=== PATIENT | female | born 1995 | race Caucasian/White ===

== ENCOUNTER 2022-07-20 14:25 | Outpatient (CLI) | payer BC, SELFPAY ==
[2022-07-23 11:34] LABS: Testosterone, Adult Male 517 ng/dL
== END 2022-07-20 14:26 | disposition home or self-care (01) ==
LOC: NFLDREF 14:26
PROVIDERS: Visit Provider Obstetrics & Gynecology
DX: F64.9 Gender identity disorder, unspecified (principal)
CPT/HCPCS: 84403

== ENCOUNTER 2022-07-27 13:34 | Outpatient (CLI) | payer BC, SELFPAY | END 2022-07-27 13:35 | disposition home or self-care (01) | LOC: NFLDREF 13:36 | PROVIDERS: Visit Provider Obstetrics & Gynecology | DX: R53.83 Other fatigue (principal); Z79.899 Other long term (current) drug therapy | CPT/HCPCS: 84443 ==

== ENCOUNTER 2022-10-02 11:07 | Outpatient (CLI) | payer BC, SELFPAY ==
[2022-10-03 14:37] LABS: Rheumatoid Factor <10 IU/mL (0-14)
[2022-10-03 22:45] LABS: Anti-Nuclear Ab(ANA)IgG ELISA None Detected (None Detected)
== END 2022-10-02 11:08 | disposition home or self-care (01) ==
PROVIDERS: PCP Family Medicine; Visit Provider Family Medicine
DX: Z00.00 Encounter for general adult medical examination without abnormal findings (principal); M25.50 Pain in unspecified joint; R53.83 Other fatigue
CPT/HCPCS: 86039; 86200; 86431

== ENCOUNTER 2023-07-05 13:50 | Outpatient (CLI) | payer BC, SELFPAY | END 2023-07-05 13:51 | disposition home or self-care (01) | LOC: NFLDREF 07-08 07:28 | PROVIDERS: PCP Family Medicine; Referring Provider Family Medicine; Visit Provider Obstetrics & Gynecology | DX: Z79.899 Other long term (current) drug therapy (principal) | CPT/HCPCS: 84403 ==

== ENCOUNTER 2024-06-09 10:11 | Outpatient (CLI) | payer BC, SELFPAY | END 2024-06-09 10:12 | disposition home or self-care (01) | LOC: NFLDREF 06-11 10:46 | PROVIDERS: PCP Family Medicine; Referring Provider Family Medicine; Visit Provider Obstetrics & Gynecology | DX: F64.9 Gender identity disorder, unspecified (principal); Z79.899 Other long term (current) drug therapy | CPT/HCPCS: 80076; 84403 ==